=== PATIENT | female | born 1945 | race Caucasian/White ===

== ENCOUNTER 2016-09-15 10:57 | Outpatient (CLI) | payer OTHER ==
--- NOTE | 2016-09-15 13:28 | DIAGNOSTIC IMAGING REPORT ---
PROCEDURE: MG UNILATERAL DIAG-RT W/CAD INDICATION: Follow-up right breast nodular density TECHNIQUE: True lateral, rolled medial and lateral CC digital views of right breast. In addition, spot compression CC and MLO views were obtained of the lateral right breast (region of clinical concern). Finally, high-resolution right breast ultrasound was performed (18 mHz). COMPARISON: Comparison is made to screening mammogram studies on 08/29/2016, 03/16/2015, 07/26/2014, 06/28/2013). FINDINGS: MAMMOGRAM: Computer-aided detection applied. Mildly dense and nodular parenchymal pattern with dystrophic calcifications. There is a 6 mm parenchymal density in the lateral right breast most compatible with normal asymmetric parenchyma. BREAST ULTRASOUND: Normal parenchyma in the lateral right breast. There is a small 4 mm cyst in the upper central right breast (incidental finding). No evidence of mass. IMPRESSION: 1. Negative mammogram with minor cystic changes in the right breast. 2. Findings discussed with the patient. RESULT CODE: 2- Benign finding(s). A. A negative report should not delay biopsy if a dominant or clinically suspicious mass is present. 10-15% of cancers are not identified by x-ray. B. A negative report may reinforce clinical impression. C. Adenosis and dense breasts may obscure an underlying neoplasm. D. False positive reports average 6-10%. E.. A yearly screening mammogram is recommended. A reminder letter will be scheduled.
== END 2016-09-15 23:00 ==
LOC: MAM SRH 10:57
DX: N63 Unspecified lump in breast (principal)